=== PATIENT | male | born 1960 | race Caucasian/White ===

== ENCOUNTER → 2017-01-25 | Outpatient (CLI) | payer OTHER ==
[2016-09-29 19:10] VITALS: BP 126/72
[~2017-01-25] MED LIST: AZEL137S3 NS; CETI10TA16 PO; FEXO180T5 PO; FLUT16SP NS; GUAI400T27 PO; IBUP400T PO; IOHEXOL 240 MG/ML 50ML VIAL. ONE; IOHEXOL 240 MG/ML 50ML VIAL. PO ONE; IOHEXOL 300 MG/ML 75 ML VIAL. IV ONE; MONT10TA9 PO; OMEP20CA9 PO; SODI1PAC12 NS; TERA5CAP3 PO; TRIA15CR TP; [UNRECOGNIZED DRUG - OTHER]
--- NOTE | 2017-01-25 11:52 | RAD ---
CT of the abdomen and pelvis with contrast, 01/25/2017: History: Left lower quadrant abdominal pain Noncontrast scans were obtained following oral and IV administration of contrast. A small nodule is present anteriorly in the right middle lobe. It contains a focus of calcification. This is probably a scar or granuloma. There is no evidence of a hepatic mass. The gallbladder is unremarkable. No pancreatic abnormality is seen. The spleen is of normal size. No renal or adrenal abnormality is detected. There is mild aortoiliac calcific plaquing without evidence of aneurysm. No abdominal or pelvic adenopathy is seen. Several prostatic calcifications are noted. Several small scattered colonic diverticula are noted. No paracolonic inflammatory process is seen. The bowel loops are not dilated. No free fluid or free air is evident in the abdomen or pelvis. No recurrent inguinal hernia is identified. IMPRESSION: 1. Minimal colonic diverticulosis. 2. No acute abdominal or pelvic abnormality is detected. 3. Partially calcified right middle lobe nodule which is probably a granuloma or scar. PQRS Compliance Statement: One or more of the following individualized dose reduction techniques were utilized for this examination: 1. Automated exposure control 2. Adjustment of the mA and/or kV according to patient size 3. Use of iterative reconstruction technique
== END | disposition home or self-care (01) ==
LOC: CT 07:17
PROVIDERS: ATTEND Physician Assistant
DX: K57.30 Diverticulosis of large intestine without perforation or abscess without bleeding (principal); R91.1 Solitary pulmonary nodule
CPT/HCPCS: 74177; Q9966; Q9967

== ENCOUNTER 2017-04-29 07:26 | Emergency (ER) | payer OTHER ==
[~2017-04-29 07:26] MED LIST changes: +FEXO180T16 PO; -FEXO180T5 PO; -FLUT16SP NS; +FLUT16SP21 NS; -GUAI400T27 PO; +GUAI400T63 PO; -IBUP400T PO; +IBUP400T18 PO; -IOHEXOL 240 MG/ML 50ML VIAL. ONE; -IOHEXOL 240 MG/ML 50ML VIAL. PO ONE; -IOHEXOL 300 MG/ML 75 ML VIAL. IV ONE; -TRIA15CR TP; +TRIA15CR50 TP
[2017-04-29] MEDS ORDERED: 0.9 % SODIUM CHLORIDE 10 ML DISP.SYRIN. IV PRN (08:00)
--- NOTE | 2017-04-29 08:08 | PHYS DOC ---
Past History Past Medical History: High Cholesterol, Hypertension, Sinusitis, Other Additional Past Medical Histor: "Leaky mitral valve" Past Surgical History: Other Additional Past Surgical Histo: patient has had hernia surgery bilaterally, left arm surgery secondary frac Smoking: Non-smoker Alcohol Use: Occasionally Drug Use: None Adult General Chief Complaint Chief Complaint: ABDOMINAL PAIN HPI HPI This is a pleasant 56-year-old male with a history of borderline hypertension and high cholesterol presents with groin pain that began several weeks ago. Patient admits to the groin pain began after doing some heavy lifting at home. Patient been seen by his primary care doctor and ordered outpatient ultrasound this of abdomen and CT scan of the pain is gotten progressively worse over last several days. He describes the pain as dull and achy from early in his lower abdomen along the belt line with now radiation to both sides of the scrotum. He denies any dysuria urgency or frequency, hematuria or discharge from his penis. He does claim is had significant issues with prostatitis and prostate problems in the past. He denies any history of sexually transmitted diseases, direct trauma, fevers, chills, nausea, vomiting, diarrhea, chest pain, shortness of breath, prior history of the same. Patient denies any recent travel outside the country, night sweats, weight loss or rashes. Review of Systems Review of Systems Constitutional: Denies fever or chills [] Eyes: Denies change in visual acuity, redness, or eye pain [] HENT: Denies nasal congestion or sore throat [] Respiratory: Denies cough or shortness of breath [] Cardiovascular: No additional information not addressed in HPI [] GI: Complains of lower abdominal pain with radiation to the scrotum and groin no nausea no vomiting no diarrhea or bloody stool. : Denies dysuria or hematuria [] Musculoskeletal: Denies back pain or joint pain [] Integument: Denies rash or skin lesions [] Neurologic: Denies headache, focal weakness or sensory changes [] Endocrine: Denies polyuria or polydipsia [] Allergies Allergies Allergies Coded Allergies Type Severity Reaction Last Updated Verified No Known Drug Allergies 03/17/15 No Physical Exam Physical Exam Signs noted hypertension noted. Constitutional: Well developed, well nourished, no acute distress, non-toxic appearance. [] HENT: Normocephalic, atraumatic, bilateral external ears normal, oropharynx moist, no oral exudates, nose normal. [] Eyes: PERRLA, EOMI, conjunctiva normal, no discharge. [] Neck: Normal range of motion, no tenderness, supple, no stridor. [] Cardiovascular:Heart rate regular rhythm, no murmur [] Lungs & Thorax: Bilateral breath sounds clear to auscultation [] Abdomen: Bowel sounds normal, she has tenderness to the lower abdominal wall specifically in the suprapubic area with radiation to the scrotum bilaterally. He's got marked tenderness to palpation over the epididymis the posterior pole of each testicle. There is a positive friend sign patient has normal cremasteric reflex no evidence of rash or redness. He's got small areas of increased lymphadenopathy in the inguinal crease. Glands the penis itself and the scrotal tissue is within normal limits with no rash no redness no soft tissue swelling. Skin: Warm, dry, no erythema, no rash. [] Back: No tenderness, no CVA tenderness. [] Extremities: No tenderness, no cyanosis, no clubbing, ROM intact, no edema. [] Neurologic: Alert and oriented X 3, Psychologic: Affect normal, judgement normal, mood normal. [] Current Patient Data Lab Results Laboratory Tests Test 04/29/17 07:45 04/29/17 07:55 Urine Collection Type Unknown Urine Color Yellow Urine Clarity Clear Urine pH 7.5 Urine Specific [place] 1.015 Urine Protein Neg (NEG-TRACE) Urine Glucose (UA) Neg mg/dL (NEG) Urine Ketones (Stick) Neg mg/dL (NEG) Urine Blood Neg (NEG) Urine Nitrite Neg (NEG) Urine Bilirubin Neg (NEG) Urine Urobilinogen Dipstick 0.2 mg/dL (0.2 mg/dL) Urine Leukocyte Esterase Neg (NEG) Urine RBC 0 /HPF (0-2) Urine WBC 0 /HPF (0-4) Urine Squamous Epithelial Cells Occ /LPF Urine Bacteria 0 /HPF (0-FEW) White Blood Count 7.4 x10^3/uL (4.0-11.0) Red Blood Count 4.72 x10^6/uL (4.30-5.70) Hemoglobin 14.3 g/dL (13.0-17.5) Hematocrit 42.7 % (39.0-53.0) Mean Corpuscular Volume 90 fL (79-100) Mean Corpuscular Hemoglobin 30 pg (25-35) Mean Corpuscular Hemoglobin Concent 33 g/dL (31-37) Red Cell Distribution Width 14.2 % (11.5-14.5) Platelet Count 168 x10^3/uL (140-400) Neutrophils (%) (Auto) 65 % (31-73) Lymphocytes (%) (Auto) 22 % (24-48) L Monocytes (%) (Auto) 10 % (0-9) H Eosinophils (%) (Auto) 2 % (0-3) Basophils (%) (Auto) 1 % (0-3) Neutrophils # (Auto) 4.8 x10^3uL (1.8-7.7) Lymphocytes # (Auto) 1.6 x10^3/uL (1.0-4.8) Monocytes # (Auto) 0.7 x10^3/uL (0.0-1.1) Eosinophils # (Auto) 0.2 x10^3/uL (0.0-0.7) Basophils # (Auto) 0.1 x10^3/uL (0.0-0.2) Sodium Level 140 mmol/L (136-145) Potassium Level 4.1 mmol/L (3.5-5.1) Chloride Level 107 mmol/L (98-107) Carbon Dioxide Level 26 mmol/L (21-32) Anion Gap 7 (6-14) Blood Urea Nitrogen 9 mg/dL (8-26) Creatinine 1.0 mg/dL (0.7-1.3) Estimated GFR (Cockcroft-Gault) 77.3 Glucose Level 104 mg/dL (70-99) H Calcium Level 8.2 mg/dL (8.5-10.1) L Total Bilirubin 0.7 mg/dL (0.2-1.0) Direct Bilirubin 0.2 mg/dL (0.0-0.2) Aspartate Amino Transferase (AST) 14 U/L (15-37) L Alanine Aminotransferase (ALT) 17 U/L (16-63) Alkaline Phosphatase 80 U/L (46-116) Total Protein 7.4 g/dL (6.4-8.2) Albumin 3.8 g/dL (3.4-5.0) Lipase 173 U/L (73-393) EKG EKG [] Radiology/Procedures Radiology/Procedures [] IMAGING REPORT Signed PATIENT: WALT TAYLOR ACCOUNT: [id number] : 1960 LOCATION: ER AGE: 56 SEX: M EXAM [id number] STATUS: REG ER ORD. PHYSICIAN: EVE JENNINGS MD REASON: groin pain PROCEDURE: ABDOMEN LTD; TESTICULAR/SCROTUM Scrotal ultrasound, 04/29/2017: History: Bilateral pain The right testicle measures 4.8 x 3.1 x 2.3 cm while the left testicle measures 4.4 x 3.0 x 2.2 cm. There is no evidence of a testicular mass. Symmetric blood flow is present in the testicles. There is a tiny 3 mm epididymal cyst on the left. The right epididymis is unremarkable. There are small bilateral hydroceles. IMPRESSION: 1. Small bilateral hydroceles. 2. Tiny left epididymal cyst. 3. No significant testicular abnormality is detected. Right groin ultrasound, 04/29/2017: History: Groin pain Several small lymph nodes are present at the right groin. These are not enlarged. They demonstrate normal echogenic rajeev. No groin mass or hernia is identified. IMPRESSION: No significant abnormality is detected. DICTATED AND SIGNED BY: GENO GARAY MD DATE: 04/29/1722 CC: EVE JENNINGS MD; BRIDGETTE MEDINA MD ~ Course & Med Decision Making Course & Med Decision Making Pertinent Labs and Imaging studies reviewed. (See chart for details) Acute pancreatitis. Appendicitis. Acute hepatitis. Peptic ulcer disease. Nonulcer dyspepsia. Irritable bowel disease. Functional gallbladder disorder. Sphincter of Oddi dysfunction. Diseases of the right kidney. Right-sided pneumonia. Bsre-Uudw-Zrcrsp syndrome Subhepatic or intraabdominal abscess. Perforated viscus. Cardiac ischemia. Black spider envenomation Differential diagnoses was considered upon arrival I have reviewed patient's nursing notes, my physical exam and my history and physical provided on this chart. I have also reviewed all the labs as well as ultrasound results posted by radiology. There is no obvious signs of testicular torsion, significant hernia or urinary tract infection. Patient will provide some pain medications and follow-up with his primary care doctor on Tuesday to continue to evaluate his lower abdominal pain. At this point time patient has no fevers, no vomiting no diarrhea no evidence of right lower quadrant abdominal pain consistent with appendicitis. Patient will be given precautions and asked to follow-up with his primary care doctor to continue to evaluate this abdominal pain. [] Dragon Disclaimer Dragon Disclaimer This chart was dictated in whole or in part using Voice Recognition software in a busy, high-work load, and often noisy Emergency Department environment. It may contain unintended and wholly unrecognized errors or omissions. Departure Departure: Impression: Primary Impression: Abdominal pain Additional Impression: Scrotal pain Disposition: HOME, SELF-CARE Condition: IMPROVED Referrals: BRIDGETTE MEDINA MD (PCP) Patient Instructions: Abdominal Pain Additional Instructions: Patient asked to return for any new or increasing symptoms. Patient be provided some anti-inflammatories and pain medications for breakthrough pain follow-up with his primary care doctor to referral back to GI. I'm still convinced there may be a little epididymal inflammation. Although his urinalysis is clear and there is no evidence of epididymal inflammation on ultrasound. Scripts Hydrocodone Bit/Acetaminophen (HYDROCODONE-APAP 5-325 ) 1 Each Tablet 1 TAB PO PRN Q6HRS Y for PAIN for 3 Days, TAB 0 Refills Prov: EVE JENNINGS MD 04/29/17 Naproxen (NAPROSYN) 500 Mg Tablet 1 TAB PO BID, #20 TAB 1 Refill Prov: EVE JENNINGS MD 04/29/17 Problem Qualifiers EVE JENNINGS MD Apr 29, 2017 08:08
[2017-04-29] MEDS ORDERED: ONDANSETRON PF 4 MG/2 ML VIAL. IV ONE (08:10)
[2017-04-29 08:14] LABS: BASO # 0.1 x10^3/uL (0.0-0.2); BASO % 1 % (0-3); EOS # 0.2 x10^3/uL (0.0-0.7); EOS % 2 % (0-3); HEMATOCRIT 42.7 % (39.0-53.0); HEMOGLOBIN 14.3 g/dL (13.0-17.5); LYMPH # 1.6 x10^3/uL (1.0-4.8); LYMPH % 22 % (24-48); MEAN CORPUSCULAR HEMOGLOBIN 30 pg (25-35); MEAN CORPUSCULAR HGB CONC 33 g/dL (31-37); MEAN CORPUSCULAR VOLUME 90 fL (79-100); MONO # 0.7 x10^3/uL (0.0-1.1); MONO % 10 % (0-9); NEUT # 4.8 x10^3uL (1.8-7.7); NEUT % 65 % (31-73); PLATELET COUNT 168 x10^3/uL (140-400); RED BLOOD COUNT 4.72 x10^6/uL (4.30-5.70); RED CELL DISTRIBUTION WIDTH 14.2 % (11.5-14.5); WHITE BLOOD COUNT 7.4 x10^3/uL (4.0-11.0)
[2017-04-29] MEDS ORDERED: IV NORMAL SALINE 1,000ML 1,000 ML IV SCH (08:15)
[2017-04-29] MEDS ORDERED: KETOROLAC 30 MG/ML VIAL. IV ONE (08:15)
[2017-04-29 08:26] LABS: BACTERIA,URINE 0 /HPF (0-FEW); BILIRUBIN,URINE NEG (NEG); CLARITY,URINE CLEAR; COLOR,URINE YELLOW; GLUCOSE,URINE NEG (NEG); NITRITE,URINE NEG (NEG); RBC,URINE 0 /HPF (0-2); SQUAMOUS EPITHELIAL CELL,UR OCC /LPF; UROBILINOGEN,URINE 0.2 mg/dL (0.2 mg/dL); WBC,URINE 0 /HPF (0-4)
[2017-04-29 08:27] LABS: ALBUMIN 3.8 g/dL (3.4-5.0); CALCIUM 8.2 mg/dL (8.5-10.1); DIRECT BILIRUBIN 0.2 mg/dL (0.0-0.2); GFR 77.3; POTASSIUM 4.1 mmol/L (3.5-5.1); TOTAL BILIRUBIN 0.7 mg/dL (0.2-1.0); TOTAL PROTEIN 7.4 g/dL (6.4-8.2)
--- NOTE | 2017-04-29 09:27 | RAD ---
Scrotal ultrasound, 04/29/2017: History: Bilateral pain The right testicle measures 4.8 x 3.1 x 2.3 cm while the left testicle measures 4.4 x 3.0 x 2.2 cm. There is no evidence of a testicular mass. Symmetric blood flow is present in the testicles. There is a tiny 3 mm epididymal cyst on the left. The right epididymis is unremarkable. There are small bilateral hydroceles. IMPRESSION: 1. Small bilateral hydroceles. 2. Tiny left epididymal cyst. 3. No significant testicular abnormality is detected. Right groin ultrasound, 04/29/2017: History: Groin pain Several small lymph nodes are present at the right groin. These are not enlarged. They demonstrate normal echogenic rajeev. No groin mass or hernia is identified. IMPRESSION: No significant abnormality is detected.
[2017-04-29 09:35] VITALS: BP 141/87
[2017-04-29] MEDS ORDERED: HYDR-2758 PO (09:37)
[2017-04-29] MEDS ORDERED: NAPR500T PO (09:37)
== END 2017-04-29 09:45 | disposition home or self-care (01) ==
LOC: ER 07:26
DX: R10.30 Lower abdominal pain, unspecified (principal); N43.3 Hydrocele, unspecified; E78.00 Pure hypercholesterolemia, unspecified; I10 Essential (primary) hypertension
CPT/HCPCS: 36415; 76705; 76870; 80048; 80076; 81001; 83690; 85027; 96374; 99285; J1885; J7030

== ENCOUNTER → 2017-06-23 | Day surgery (SDC) | payer OTHER ==
[~2017-06-23] MED LIST changes: +HYDR-2758 PO; +IV RINGERS SOLUTION,LACTATED 1,000 ML IV ONE; +NAPR500T PO; +PROPOFOL 40 ML IV ONE
--- NOTE | 2017-06-27 10:24 | PATHOLOGY ---
PATHOLOGY REPORT * * * * * * * * FINAL DIAGNOSIS: Colon, ascending, biopsy: - Adenomatous polyps, two fragments. (SKM:sri; 06/27/2017) REPORT ELECTRONICALLY SIGNED BY: Maritza Woodson M.D. DATE/TIME: 06/27/2017 10:23 * * * * * * * * GROSS PATHOLOGY: Received in formalin labeled "Walt Taylor, ascending colon polyp," are two segments of lee soft tissue measuring 0.3 cm in maximum dimension each. The specimen is submitted entirely in cassette A1. (TSD; 06/24/2017) INITIAL CPT CODE(S): A; 39546 Professional services performed [place] [facility] [address] Technical services performed by [facility] at [address] [place] [address], [place] [address]. SPECIMEN(S) RECEIVED: A.Ascending colon polyp CLINICAL HISTORY: Screening PATIENT: WALT TAYLOR /AGE: 3 1960 (Age: 56) PATIENT #: [id number] CASE #: SPECIMEN COLLECTION DATE: 06/23/2017 SPECIMEN RECEIVED DATE: 06/24/2017 [facility] - [address] [place] [address] - PHONE: [phone] * * * END OF REPORT * * *
== END | disposition home or self-care (01) ==
LOC: SURG 08:27
PROVIDERS: ATTEND Internal Medicine Gastroenterology
DX: D12.2 Benign neoplasm of ascending colon (principal); K21.9 Gastro-esophageal reflux disease without esophagitis; Z80.42 Family history of malignant neoplasm of prostate; Z80.0 Family history of malignant neoplasm of digestive organs; H26.9 Unspecified cataract; Z98.49 Cataract extraction status, unspecified eye
CPT/HCPCS: 45385; 88305; J2704; J7120; 45380

== ENCOUNTER → 2018-01-03 | Outpatient (CLI) | payer OTHER ==
[~2018-01-03] MED LIST changes: -IV RINGERS SOLUTION,LACTATED 1,000 ML IV ONE; +NAPR-683 PO; -NAPR500T PO; -PROPOFOL 40 ML IV ONE
--- NOTE | 2018-01-03 12:39 | CARD ---
MR#: [id number] Date of Study: 01/03/2018 Ordering Physician: CASIE SERVIN, Referring Physician: CASIE SERVIN, Tech: Heydi Berry MUSTAPHA APPROVED REPORT EXAM: Two-dimensional and M-mode echocardiogram with Doppler and color Doppler. Other Information Quality : Good INDICATION Abnormal ECG Bradycardia 2D DIMENSIONS RVDd3.3 (2.9-3.5cm)Left Atrium(2D)4.2 (1.6-4.0cm) IVSd1.7 (0.7-1.1cm)Aortic Root(2D)3.7 (2.0-3.7cm) LVDd4.9 (3.9-5.9cm)LVOT Diameter2.4 (1.8-2.4cm) PWd1.1 (0.7-1.1cm)LVDs2.7 (2.5-4.0cm) FS (%) 30.0 %SV85.9 ml LVEF(%)60.0 (>50%) Aortic Valve AoV Peak [place].118.6cm/sAoV VTI18.5cm AO Peak GR.5.6mmHgLVOT Peak [place].124.6cm/s LVOT VTI 20.43cmAO Mean GR.3mmHg DEVON (VMAX)4.13jb0VLZ (VTI)5.13cm2 Mitral Valve MV E Auvypjsq68.6cm/sMV DECEL IQQZ337nf MV A Mmilskgs32.9cm/sE/A Ratio0.9 Tricuspid Valve TR P. Ewgsknrp426it/sRAP UPZQFADH6syGz TR Peak Gr.05ypBtXOIN75syAv Pulmonary Vein S1 Vrxuslqk53.0cm/sD2 Zqawkmxg41.4cm/s LEFT VENTRICLE The left ventricle is normal size. There is moderate asymmetric hypertrophy. The left ventricular sys tolic function is normal. The Ejection Fraction is 55-60%. There is normal LV segmental wall motion. Transmitral Doppler flow pattern is Grade I-abnormal relaxation pattern. RIGHT VENTRICLE The right ventricle is normal size. The right ventricular systolic function is normal. ATRIA The left atrium is mildly dilated. The right atrium size is normal. The interatrial septum is intact with no evidence for an atrial septal defect or patent foramen ovale as noted on 2-D or Doppler imagi ng. AORTIC VALVE The aortic valve is calcified but opens well. Doppler and Color Flow revealed no significant aortic r egurgitation. There is no significant aortic valvular stenosis. MITRAL VALVE The mitral valve is normal in structure and function. There is no evidence of mitral valve prolapse. There is no mitral valve stenosis. Doppler and Color-flow revealed trace mitral regurgitation. TRICUSPID VALVE The tricuspid valve is normal in structure and function. Doppler and Color Flow revealed trace tricus pid regurgitation. The PA pressure was estimated at 23 mmHg. There is no tricuspid valve stenosis. PULMONIC VALVE The pulmonary valve is normal in structure and function. Doppler and Color Flow revealed trace pulmon ic valvular regurgitation. There is no pulmonic valvular stenosis. GREAT VESSELS The aortic root is normal in size. The ascending aorta is normal in size. The IVC is normal in size a nd collapses >50% with inspiration. PERICARDIAL EFFUSION There is no evidence of significant pericardial effusion. Critical Notification Critical Value: No <Conclusion> The left ventricular systolic function is normal. The Ejection Fraction is 55-60%. There is normal LV segmental wall motion. Trace mitral regurgitation. Trace tricuspid regurgitation. The PA pressure was estimated at 23 mmHg. There is no evidence of significant pericardial effusion. Signed by : Gallito Stevenson, Electronically Approved : 01/03/2018 12:38:47
== END | disposition home or self-care (01) ==
LOC: ECHO 10:38
PROVIDERS: ATTEND Internal Medicine Cardiovascular Disease
DX: R00.1 Bradycardia, unspecified (principal); R94.31 Abnormal electrocardiogram [ECG] [EKG]; I10 Essential (primary) hypertension; E78.00 Pure hypercholesterolemia, unspecified
CPT/HCPCS: 93306

== ENCOUNTER 2018-05-07 12:55 | Emergency (ER) | payer OTHER ==
[~2018-05-07] VITALS: Ht 182.9 cm; Wt 105.0 kg
[2018-05-07] MEDS ORDERED: IV NORMAL SALINE 1,000ML 1,000 ML IV ONE (13:15)
--- NOTE | 2018-05-07 13:25 | EKG ---
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
[2018-05-07 13:31] LABS: BASO % 1 % (0-3); EOS # 0.2 x10^3/uL (0.0-0.7); EOS % 3 % (0-3); HEMATOCRIT 42.8 % (39.0-53.0); HEMOGLOBIN 14.6 g/dL (13.0-17.5); LYMPH # 1.5 x10^3/uL (1.0-4.8); LYMPH % 26 % (24-48); MEAN CORPUSCULAR HEMOGLOBIN 31 pg (25-35); MEAN CORPUSCULAR HGB CONC 34 g/dL (31-37); MEAN CORPUSCULAR VOLUME 90 fL (79-100); MONO # 0.7 x10^3/uL (0.0-1.1); MONO % 13 % (0-9); NEUT # 3.3 x10^3uL (1.8-7.7); NEUT % 57 % (31-73); PLATELET COUNT 174 x10^3/uL (140-400); RED BLOOD COUNT 4.76 x10^6/uL (4.30-5.70); RED CELL DISTRIBUTION WIDTH 14.1 % (11.5-14.5); WHITE BLOOD COUNT 5.8 x10^3/uL (4.0-11.0)
--- NOTE | 2018-05-07 13:34 | PHYS DOC ---
Past History Past Medical History: GERD, Other Additional Past Medical Histor: "Leaky mitral valve" Past Surgical History: No Surgical History Additional Past Surgical Histo: patient has had hernia surgery bilaterally, left arm surgery secondary frac Smoking: Non-smoker Alcohol Use: Rarely Drug Use: None Adult General Chief Complaint Chief Complaint: DIZZY/LIGHT HEADED HPI HPI 57-year-old male presents with report of drinking his coffee this morning and relaxing when subsequently he became dizzy. Patient reports taking his blood pressure at that time and that he noticed that it was higher than normal. Patient continued to retake it at different intervals and it became even higher. Patient therefore decided he would need to come to the ER for further evaluation. Patient reports he is seeing his family physician regarding blood pressure, but has not yet been placed on any medication. Denies trauma. Denies fever/chills. Denies chest pain. Review of Systems Review of Systems Constitutional: Denies fever or chills [] Eyes: Denies change in visual acuity, redness, or eye pain [] HENT: Denies nasal congestion or sore throat [] Respiratory: Denies cough or shortness of breath [] Cardiovascular: Denies chest pain or palpitations GI: Denies abdominal pain, nausea, vomiting, or diarrhea [] : Denies dysuria or hematuria [] Musculoskeletal: Denies back pain or joint pain [] Integument: Denies rash or skin lesions [] Neurologic: Denies headache, focal weakness or sensory changes [] Complete systems were reviewed and found to be within normal limits, except as documented in this note. Current Medications Current Medications Current Medications Medications (Trade) Dose Ordered Sig/Aric Start Time Stop Time Status Last Admin Dose Admin Sodium Chloride 1,000 ml @ 1,000 mls/hr 1X ONCE 05/07/18 13:15 05/07/18 14:14 05/07/18 13:15 1,000 MLS/HR Allergies Allergies Allergies Coded Allergies Type Severity Reaction Last Updated Verified No Known Drug Allergies 03/17/15 No Physical Exam Physical Exam Constitutional: Well developed, well nourished, no acute distress, non-toxic appearance. [] HENT: Normocephalic, atraumatic, bilateral TMs clear, oropharynx moist Eyes: PERRL, EOMI, conjunctiva normal, no discharge. [] Neck: Normal range of motion, no tenderness, supple, no meningeal signs Cardiovascular: Heart rate regular rhythm, no murmur [] Lungs & Thorax: Bilateral breath sounds clear to auscultation [] Abdomen: Soft, no tenderness Skin: Warm, dry, no erythema, no rash. [] Back: No tenderness, no CVA tenderness. [] Extremities: No tenderness, ROM intact, no edema. [] Neurologic: Alert and oriented X 3, normal motor function, normal sensory function, no focal deficits noted, cerebellar function intact. Psychologic: Affect normal, judgement normal, mood normal. [] NIHSS 0 Current Patient Data Vital Signs Vital Signs Date Time Temp Pulse Resp B/P (MAP) Pulse Ox O2 Delivery O2 Flow Rate FiO2 05/07/18 13:05 98.2 52 16 96 Room Air Lab Results Laboratory Tests Test 05/07/18 13:12 White Blood Count 5.8 x10^3/uL (4.0-11.0) Red Blood Count 4.76 x10^6/uL (4.30-5.70) Hemoglobin 14.6 g/dL (13.0-17.5) Hematocrit 42.8 % (39.0-53.0) Mean Corpuscular Volume 90 fL (79-100) Mean Corpuscular Hemoglobin 31 pg (25-35) Mean Corpuscular Hemoglobin Concent 34 g/dL (31-37) Red Cell Distribution Width 14.1 % (11.5-14.5) Platelet Count 174 x10^3/uL (140-400) Neutrophils (%) (Auto) 57 % (31-73) Lymphocytes (%) (Auto) 26 % (24-48) Monocytes (%) (Auto) 13 % (0-9) H Eosinophils (%) (Auto) 3 % (0-3) Basophils (%) (Auto) 1 % (0-3) Neutrophils # (Auto) 3.3 x10^3uL (1.8-7.7) Lymphocytes # (Auto) 1.5 x10^3/uL (1.0-4.8) Monocytes # (Auto) 0.7 x10^3/uL (0.0-1.1) Eosinophils # (Auto) 0.2 x10^3/uL (0.0-0.7) Basophils # (Auto) 0.0 x10^3/uL (0.0-0.2) EKG EKG NSR at 52bpm, No ST elevation, nonspecific t wave inversion III; Obtained at 1323 on 05/07/18 Radiology/Procedures Radiology/Procedures PROCEDURE: CT HEAD WO CONTRAST CT of the head without contrast, 05/07/2018: HISTORY: Headache, dizziness The ventricles are within normal limits in size. There is no shift of the midline structures. There is no evidence of acute intracranial hemorrhage or mass effect. There is a small amount of free fluid in the maxillary sinuses, presumably on an inflammatory basis. IMPRESSION: 1. No acute intracranial abnormality is detected. 2. Minimal fluid in both maxillary sinuses. Course & Med Decision Making Course & Med Decision Making Pertinent Labs and Imaging studies reviewed. (See chart for details) Patient presents with report of dizziness and concern for elevated blood pressure. Patient's blood pressure upon arrival 160s over 90s. Patient does appear anxious. Patient neurologically intact. NIHSS 0. Denies chest pain or headache. EKG stable. Orthostatic vital signs stable. Labs obtained and posted to chart. Initial troponin within normal limits. CT head with findings concerning for possible maxillary sinusitis. Patient stable for discharge with outpatient follow-up with PCP. Discussed findings and plan with patient and family, who acknowledge understanding and agreement. Dragon Disclaimer Dragon Disclaimer This electronic medical record was generated, in whole or in part, using a voice recognition dictation system. Departure Departure: Impression: Primary Impression: Dizziness Disposition: 01 HOME, SELF-CARE Condition: STABLE Referrals: MONIE RIVERA MD (PCP) Patient Instructions: Dizziness, Pimg-pg-Hzee, Hypertension, Sqwf-vk-Pxkq, Sinusitis, Hlaj-ax-Kaaj Scripts Prednisone (PREDNISONE) 20 Mg Tablet 2 TAB PO DAILY, #14 TAB Prov: DILMA FORTUNE DO 05/07/18 Meclizine Hcl (MECLIZINE HCL) 25 Mg Tablet 1 TAB PO PRN TID PRN for DIZZINESS, #20 TAB Prov: DILMA FORTUNE DO 05/07/18 DILMA FORTUNE DO May 07, 2018 13:34
[2018-05-07 13:52] LABS: BACTERIA,URINE 0 /HPF (0-FEW); BILIRUBIN,URINE NEG (NEG); CLARITY,URINE CLEAR; COLOR,URINE STRAW; GLUCOSE,URINE NEG (NEG); NITRITE,URINE NEG (NEG); RBC,URINE 0 /HPF (0-2); UROBILINOGEN,URINE 0.2 mg/dL (0.2 mg/dL); WBC,URINE RARE /HPF (0-4)
[2018-05-07 13:53] LABS: SQUAMOUS EPITHELIAL CELL,UR OCC /LPF
[2018-05-07 13:53] LABS: ALBUMIN 3.9 g/dL (3.4-5.0); ALBUMIN/GLOBULIN RATIO 1.1 (1.0-1.7); CALCIUM 8.7 mg/dL (8.5-10.1); CREATININE 0.9 mg/dL (0.7-1.3); MAGNESIUM 2.1 mg/dL (1.8-2.4); POTASSIUM 3.9 mmol/L (3.5-5.1); TOTAL BILIRUBIN 0.8 mg/dL (0.2-1.0); TOTAL PROTEIN 7.5 g/dL (6.4-8.2)
--- NOTE | 2018-05-07 14:00 | RAD ---
CT of the head without contrast, 05/07/2018: HISTORY: Headache, dizziness The ventricles are within normal limits in size. There is no shift of the midline structures. There is no evidence of acute intracranial hemorrhage or mass effect. There is a small amount of free fluid in the maxillary sinuses, presumably on an inflammatory basis. IMPRESSION: 1. No acute intracranial abnormality is detected. 2. Minimal fluid in both maxillary sinuses. Electronically signed by: Hugh Beck MD (05/07/2018 1:56 PM) [facility]
[2018-05-07] MEDS ORDERED: MECL25TA3 PO (14:25)
[2018-05-07] MEDS ORDERED: PRED20TA PO (14:25)
[2018-05-07] MEDS ORDERED: DEXAMETHASONE 4 MG TABLET PO ONE (14:30)
[2018-05-07 14:37] VITALS: BP 142/76
== END 2018-05-07 15:24 | disposition home or self-care (01) ==
LOC: ER 12:55
DX: R42 Dizziness and giddiness (principal); K21.9 Gastro-esophageal reflux disease without esophagitis
CPT/HCPCS: 36415; 70450; 80053; 81001; 82553; 83735; 84484; 85025; 93005; 99285; J8540; J7030

== ENCOUNTER → 2019-12-07 | Outpatient (CLI) | payer OTHER ==
[~2019-12-07] MED LIST changes: -GUAI400T63 PO; +GUAI400T78 PO; +HYDR-2155 PO; -HYDR-2758 PO; +MECL-75 PO; +MONT10TA80 PO; -MONT10TA9 PO; +OMEP20CA16 PO; -OMEP20CA9 PO; +PRED20TA PO
--- NOTE | 2019-12-07 16:23 | RAD ---
EXAM: Chest, 2 views. HISTORY: Cough. COMPARISON: None. FINDINGS: 2 views of the chest are obtained. There is no infiltrate, pleural effusion or pneumothorax. The heart is normal in size. IMPRESSION: No acute pulmonary finding. Electronically signed by: Enedelia Brennan MD (12/07/2019 4:20 PM) [id number]
[2019-12-07 16:36] LABS: CALCIUM 8.3 mg/dL (8.5-10.1); CREATININE 1.1 mg/dL (0.7-1.3); GFR 68.8; POTASSIUM 3.7 mmol/L (3.5-5.1)
[2019-12-07 17:02] LABS: BASO % 1 % (0-3); EOS # 0.1 x10^3/uL (0.0-0.7); EOS % 1 % (0-3); HEMOGLOBIN 14.6 g/dL (13.0-17.5); LYMPH # 2.3 x10^3/uL (1.0-4.8); LYMPH % 27 % (24-48); MEAN CORPUSCULAR HEMOGLOBIN 31 pg (25-35); MEAN CORPUSCULAR HGB CONC 33 g/dL (31-37); MEAN CORPUSCULAR VOLUME 93 fL (79-100); MONO # 0.6 x10^3/uL (0.0-1.1); MONO % 7 % (0-9); NEUT # 5.5 x10^3uL (1.8-7.7); NEUT % 64 % (31-73); PLATELET COUNT 215 x10^3/uL (140-400); RED BLOOD COUNT 4.74 x10^6/uL (4.30-5.70); RED CELL DISTRIBUTION WIDTH 13.6 % (11.5-14.5); WHITE BLOOD COUNT 8.5 x10^3/uL (4.0-11.0)
== END | disposition home or self-care (01) ==
LOC: LAB 15:41
PROVIDERS: ATTEND Family Medicine
DX: J98.01 Acute bronchospasm (principal); B97.81 Human metapneumovirus as the cause of diseases classified elsewhere
CPT/HCPCS: 36415; 71046; 80048; 85025

== ENCOUNTER → 2020-11-24 | Outpatient (CLI) | payer OTHER ==
--- NOTE | 2020-11-24 11:36 | RAD ---
Examination: Left Lower Extremity Venous Doppler Ultrasound History: Left leg pain, swelling Comparison: None Procedure: Allison scale, color flow 2D and spectal waveform analysis images are obtained with and witho ut compression in the area of the common femoral vein, superficial femoral vein - femoral vein juncti on, main femoral vein (superficial femoral vein) and popliteal vein. Veins of the proximal calf are a lso imaged. Findings: There is normal duplex flow, color flow and compressibility of all visualized vein segments. No evide nce of deep venous thrombus is present. Impression: No evidence of DVT in the left lower extremity venous system. Electronically signed by: Audie Payne MD (11/24/2020 11:33 AM) [id number]
== END ==
LOC: US 10:39
PROVIDERS: ATTEND Family Medicine
DX: R22.42 Localized swelling, mass and lump, left lower limb (principal)
CPT/HCPCS: 93971

== ENCOUNTER → 2021-05-21 | Outpatient (CLI) | payer OTHER ==
[2021-05-21] MEDS: IOHEXOL 300 MG/ML 75 ML VIAL. IV ONE (10:02)
--- NOTE | 2021-05-21 11:00 | RAD ---
EXAM: Abdomen and pelvis CT with intravenous contrast. HISTORY: Pain. TECHNIQUE: Computed tomographic images of the abdomen and pelvis were obtained following the administ ration of intravenous contrast. Multiplanar reformatting was performed. *One or more of the following individualized dose reduction techniques were utilized for this examina tion: 1. Automated exposure control. 2. Adjustment of the mA and/or kV according to patient size. 3. Use of iterative reconstruction technique. COMPARISON: 01/25/2017. FINDINGS: Evaluation of the lower thorax demonstrates a 10 mm nodule containing a punctate calcificat ion within the anterior right middle lobe. There is basilar and posterior dependent atelectasis. Ther e is no infiltrate or pleural effusion. There is a slightly patulous distal esophagus. No hepatic les ion is seen. The gallbladder, pancreas, spleen and adrenal glands are unremarkable. There is no hydro nephrosis or suspicious renal lesion. There is no appendicitis. There is no bowel obstruction. There is sigmoid diverticulosis. There is no convincing diverticulitis. There is no bowel wall thickening t o suggest enteritis or colitis. The bladder wall slightly thickened likely due to relative under dist ention. There are dystrophic calcifications within the prostate. There is evidence of inguinal hernia repair. The aorta is normal in caliber. There is no lymphadenopathy. There is stable asymmetry withi n the right greater than left inguinal lymph nodes. These are not clearly pathologically enlarged. Th ere is no acute or suspicious osseous finding. IMPRESSION: 1. No convincing acute abdominal or pelvic finding. 2. Sigmoid diverticulosis. 3. Stable 10 mm pulmonary nodule containing a calcification within the right middle lobe. The greater than 4 year course of stability favors a benign partially calcified granuloma. Electronically signed by: Enedelia Brennan MD (05/21/2021 10:58 AM) [id number]
== END ==
LOC: CT 09:41
PROVIDERS: ATTEND Nurse Practitioner Adult Health
DX: K57.30 Diverticulosis of large intestine without perforation or abscess without bleeding (principal); R91.1 Solitary pulmonary nodule; J98.11 Atelectasis; K40.90 Unilateral inguinal hernia, without obstruction or gangrene, not specified as recurrent
CPT/HCPCS: 74177; Q9967

== ENCOUNTER 2021-08-31 08:34 | Emergency (ER) | payer OTHER ==
[~2021-08-31] VITALS: Ht 180.3 cm; Wt 104.5 kg
[2021-08-31] MEDS ORDERED: IV NORMAL SALINE 1,000ML 1,000 ML IV ONE (09:15)
--- NOTE | 2021-08-31 09:20 | PHYS DOC ---
Past History Past Medical History: GERD, Other Additional Past Medical Histor: "Leaky mitral valve" Past Surgical History: Other Additional Past Surgical Histo: patient has had hernia surgery bilaterally, left arm surgery secondary frac Smoking: Non-smoker Alcohol Use: Rarely Drug Use: None General Adult EDM: Chief Complaint: DIARRHEA HPI: HPI: 60-year-old male presents with 2-day history of diarrhea. 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 He has had diarrhea that is watery without blood for the last 2 days. He tried 1 dose of the medication similar to loperamide but it did not seem to help. He is vaccinated against COVID-19 including the booster. He denies vomiting or abdominal pain. No measured fever but some mild chills and body aches. Review of Systems: Review of Systems: Constitutional: chills, body aches Eyes: Denies change in visual acuity HENT: Denies nasal congestion or sore throat Respiratory: Denies cough or shortness of breath Cardiovascular: Denies chest pain or edema GI: Diarrhea. Denies abdominal pain, nausea, vomiting, bloody stools. : Denies dysuria Musculoskeletal: Denies back pain or joint pain Integument: Denies rash Neurologic: Denies headache, focal weakness or sensory changes Endocrine: Denies polyuria or polydipsia Lymphatic: Denies swollen glands Psychiatric: Denies depression or anxiety Current Medications: Current Meds: Current Medications Medications (Trade) Dose Ordered Sig/Aric Start Time Stop Time Status Last Admin Dose Admin Sodium Chloride 1,000 ml @ 1,000 mls/hr 1X ONCE 08/31/21 09:15 08/31/21 10:14 UNV Allergies: Allergies: Allergies Coded Allergies Type Severity Reaction Last Updated Verified No Known Drug Allergies 03/17/15 No Physical Exam: PE: Constitutional: Well developed, well nourished, no acute distress, non-toxic appearance. [] HENT: Normocephalic, atraumatic, bilateral external ears normal, oropharynx moist, no oral exudates, nose normal. [] Eyes: PERRLA, EOMI, conjunctiva normal, no discharge. [] Neck: Normal range of motion, no tenderness, supple, no stridor. [] Cardiovascular: Heart rate regular rhythm, no murmur [] Lungs & Thorax: Bilateral breath sounds clear to auscultation [] Abdomen: Bowel sounds normal, soft, no tenderness, no masses, no pulsatile masses. [] Skin: Warm, dry, no erythema, no rash. [] Back: No tenderness, no CVA tenderness. [] Extremities: No tenderness, no cyanosis, no clubbing, ROM intact, no edema. [] Neurologic: Alert and oriented X 3, normal motor function, normal sensory function, no focal deficits noted. [] Psychologic: Affect normal, judgement normal, mood normal. [] Current Patient Data: Vital Signs: Vital Signs Date Time Temp Pulse Resp B/P (MAP) Pulse Ox O2 Delivery O2 Flow Rate FiO2 08/31/21 09:03 98.5 66 16 135/80 (98) 96 Room Air EKG: EKG: [] Radiology/Procedures: Radiology/Procedures: [] Heart Score: C/O Chest Pain: N/A Risk Factors: Risk Factors: DM, Current or recent (<one month) smoker, HTN, HLP, family history of CAD, obesity. Risk Scores: Score 0 - 3: 2.5% MACE over next 6 weeks - Discharge Home Score 4 - 6: 20.3% MACE over next 6 weeks - Admit for Clinical Observation Score 7 - 10: 72.7% MACE over next 6 weeks - Early Invasive Strategies Course & Med Decision Making: Course & Med Decision Making Pertinent Labs and Imaging studies reviewed. (See chart for details) The patient's labs are unremarkable. I have given him a liter normal saline & provided. He provided a stool sample in the ER we will tested for ova and parasites. I do not have suspicion for C. difficile. He is stable for discharge at this time. [] Dragon Disclaimer: Dragon Disclaimer: This electronic medical record was generated, in whole or in part, using a voice recognition dictation system. Departure Departure: Impression: Primary Impression: Diarrhea Qualified Codes: R19.7 - Diarrhea, unspecified Disposition: HOME / SELF CARE / HOMELESS Condition: STABLE Referrals: MONIE RIVERA MD (PCP) Patient Instructions: Diarrhea, [id number] CHRISS HESS DO Aug 31, 2021 09:20
[2021-08-31] MEDS ORDERED: LOPERAMIDE 2 MG CAPSULE PO ONE (09:30)
[2021-08-31 09:41] LABS: BASO % 1 % (0-3); EOS # 0.1 x10^3/uL (0.0-0.7); EOS % 2 % (0-3); HEMATOCRIT 43.9 % (39.0-53.0); HEMOGLOBIN 14.7 g/dL (13.0-17.5); LYMPH # 1.1 x10^3/uL (1.0-4.8); LYMPH % 17 % (24-48); MEAN CORPUSCULAR HEMOGLOBIN 31 pg (25-35); MEAN CORPUSCULAR HGB CONC 34 g/dL (31-37); MEAN CORPUSCULAR VOLUME 92 fL (79-100); MONO # 0.8 x10^3/uL (0.0-1.1); MONO % 12 % (0-9); NEUT # 4.4 x10^3uL (1.8-7.7); NEUT % 69 % (31-73); PLATELET COUNT 162 x10^3/uL (140-400); RED BLOOD COUNT 4.76 x10^6/uL (4.30-5.70); RED CELL DISTRIBUTION WIDTH 14.3 % (11.5-14.5); WHITE BLOOD COUNT 6.4 x10^3/uL (4.0-11.0)
[2021-08-31 09:48] LABS: CALCIUM 8.1 mg/dL (8.5-10.1); GFR 76.2; POTASSIUM 3.9 mmol/L (3.5-5.1)
[2021-08-31 09:54] LABS: ALBUMIN 3.7 g/dL (3.4-5.0); TOTAL BILIRUBIN 0.4 mg/dL (0.2-1.0); TOTAL PROTEIN 7.3 g/dL (6.4-8.2)
[2021-08-31 10:40] VITALS: BP 127/78
--- NOTE | 2021-09-02 11:36 | NUR ---
ATTEMPTED TO REACH PATIENT WITH COVID RESULTS. NO ANSWER. MESSAGE LEFT
== END 2021-08-31 10:53 | disposition home or self-care (01) ==
LOC: ER 08:34
DX: R19.7 Diarrhea, unspecified (principal); K21.9 Gastro-esophageal reflux disease without esophagitis; Z20.822 Contact with and (suspected) exposure to COVID-19
CPT/HCPCS: 36415; 80053; 85025; 87177; 87209; 96360; 99283; C9803; J7030; U0003

== ENCOUNTER → 2021-10-29 | Outpatient (CLI) | payer OTHER ==
[~2021-10-29] MED LIST changes: +IOHEXOL 240 MG/ML 50ML VIAL. ONE
[2021-10-29] MEDS: IOHEXOL 240 MG/ML 50ML VIAL. PO ONE (11:30)
[2021-10-29] MEDS: IOHEXOL 300 MG/ML 75 ML VIAL. IV ONE (11:31)
--- NOTE | 2021-10-29 12:41 | RAD ---
INDICATION: Reason: abdomen pain x 2 months DRINKING [id number], NO IV, CM ORDERED / Spl. Instructions : / History: COMPARISON: May 21, 2021 TECHNIQUE: Axial CT images were obtained through the abdomen and pelvis with intravenous contrast. One or more of the following individualized dose reduction techniques were utilized for this examinat ion: 1. Automated exposure control; 2. Adjustment of the mA and/or kV according to patient size; 3 . Use of iterative reconstruction technique. FINDINGS: Calcified lung nodule again seen at the right lung base. Vascular: Scattered regions of calcific atherosclerosis. Mildly prominent groin lymph nodes again seen. Hepatobiliary: Liver is mildly low density. Nonspecific but can be seen with mild fatty infiltration. Pancreas: No peripancreatic edema. Spleen: Spleen unremarkable. Renal/Bladder: No hydronephrosis. Gastrointestinal: Colonic diverticulosis. Contrast is seen reaching the large bowel. The possible petrona endix does not appear inflamed Degenerative changes of the spine. Degenerative changes the hips. IMPRESSION: * No evidence of bowel obstruction. * Calcified granuloma right lung base. Electronically signed by: Vaughn Benoit MD (10/29/2021 12:38 PM) [id number]
== END ==
LOC: CT 10:31
PROVIDERS: ATTEND Nurse Practitioner Adult Health
DX: J84.10 Pulmonary fibrosis, unspecified (principal); K57.30 Diverticulosis of large intestine without perforation or abscess without bleeding; M16.0 Bilateral primary osteoarthritis of hip; M47.819 Spondylosis without myelopathy or radiculopathy, site unspecified
CPT/HCPCS: 74177; Q9966; Q9967